=== PATIENT | male | born 1955 | race African-American/Black ===

== ENCOUNTER 2023-09-07 22:50 | Emergency (ER) | payer MEDICARE, MEDICAID ==
[~2023-09-07] VITALS: Ht 177.8 cm; Wt 109.1 kg
[~2023-09-07 22:50] MED LIST: ASPI-556 PO; HYDR25TA2 PO
[2023-09-08 00:04] LABS: BASOPHILS % (AUTO) 0.6 % (0.0-2.0); EOSINOPHILS % (AUTO) 2.9 % (1.0-6.0); HEMATOCRIT 33.4 % (41-53); HEMOGLOBIN 10.9 g/dL (13.5-17.5); LYMPHOCYTES # (AUTO) 0.5 K/uL (1.0-4.8); MEAN CORPUSCULAR HEMOGLOBIN 27.8 pg (26.0-34.0); MEAN CORPUSCULAR HGB CONC 32.5 G/dL (31.0-37.0); MEAN CORPUSCULAR VOLUME 85 fL (80-100); MONOCYTES # (AUTO) 0.8 K/uL (0.1-1.0); MONOCYTES % (AUTO) 12.7 % (2.0-9.0); NEUTROPHILS # (AUTO) 4.7 K/uL (1.8-7.7); NEUTROPHILS % (AUTO) 75.8 % (40.0-70.0); PLATELET COUNT (AUTO) 191 K/uL (150-450); RED BLOOD CELL COUNT(AUTO) 3.91 MIL/uL (4.50-5.90); WHITE BLOOD COUNT (AUTO) 6.2 K/uL (4.5-11.0)
[2023-09-08 00:12] LABS: CALCIUM, TOTAL 9.5 mg/dL (8.8-10.5); CREATININE 1.66 mg/dL (0.60-1.30); POTASSIUM 3.6 mmol/L (3.5-5.1)
[2023-09-08 00:21] LABS: TROPONIN I-HIGH SENSITIVITY 54 ng/L (<76)
[2023-09-08 00:22] LABS: ALBUMIN 3.6 g/dL (3.4-5.0); BILIRUBIN,TOTAL 0.5 mg/dL (0.1-1.0); TOTAL PROTEIN, SERUM 7.2 g/dL (6.4-8.2)
[2023-09-08 00:32] VITALS: TEMP 98.8
[2023-09-08] MEDS ORDERED: ONDANSETRON HCL 4 MG/2 ML VIAL IVP PRN (01:15)
[2023-09-08] MEDS ORDERED: 0.9% SODIUM CHLORIDE 10 ML SYRINGE IVP PRN (01:15)
[2023-09-08] MEDS: ACETAMINOPHEN 325 MG TABLET PO PRN (01:34)
[2023-09-08] MEDS: FUROSEMIDE 40 MG/4 ML VIAL IVP ONE (01:34)
[2023-09-08 01:36] LABS: INFLUENZA A-RTPCR,COMBO NEGATIVE (NEGATIVE); INFLUENZA B-RTPCR,COMBO NEGATIVE (NEGATIVE); RESPIRATORY SYNCYTIAL VRS-PCR NEGATIVE (NEGATIVE); SARS COVID19 RTPCR, COMBO NEGATIVE (NEGATIVE)
[2023-09-08 02:49] LABS: APPEARANCE,URINE CLEAR (CLEAR); BILIRUBIN,URINE NEGATIVE (NEGATIVE); COLOR,URINE LIGHT YELLOW (YELLOW); GLUCOSE, URINE (UA) 300-500 mg/dL (NEGATIVE); KETONES,URINE NEGATIVE (NEGATIVE); LEUKOCYTE ESTERASE ,URINE NEGATIVE (NEGATIVE); NITRATE,URINE NEGATIVE (NEGATIVE); OCCULT BLOOD,URINE NEGATIVE (NEGATIVE); PROTEIN,URINE 30-70 mg/dL (NEGATIVE); SPECIFIC GRAVITIY, URINE 1.014 (1.003-1.030); UROBILINOGEN,URINE <=1.0 mg/dL (<=1.0)
[2023-09-08 02:55] LABS: ALCOHOL, URINE DRUG SCREEN NEGATIVE (NEGATIVE); AMPHET/METH SCREEN,URINE NEGATIVE (NEGATIVE); BARBITURATE SCREEN, URINE NEGATIVE (NEGATIVE); BENZODIAZEPINES SCREEN,URINE NEGATIVE (NEGATIVE); CANNABINOID SCREEN,URINE NEGATIVE (NEGATIVE); COCAINE SCREEN,URINE NEGATIVE (NEGATIVE); METHADONE SCREEN, URINE NEGATIVE (NEGATIVE); OPIATE SCREEN,URINE NEGATIVE (NEGATIVE); PHENCYCLIDINE SCREEN,URINE NEGATIVE (NEGATIVE)
[2023-09-08 02:57] LABS: RBC,URINE None Seen /HPF (0-2); WBC,URINE None Seen /HPF (0-5)
[2023-09-08 02:58] LABS: BACTERIA,URINE None Seen /HPF (None Seen); SQUAMOUS EPITHELIAL CELL,UR None Seen /LPF (None Seen)
[2023-09-08 04:51] VITALS: BP 144/80; PULSE 72; RESP 16
== END 2023-09-08 05:12 | disposition short-term general hospital (02) ==
LOC: EMS 22:50 → 5S 09-08 01:21 → UNDOADMIN 09-08 01:21 → EMS 09-08 05:12
DX: I11.0 Hypertensive heart disease with heart failure (principal); I50.9 Heart failure, unspecified; R06.02 Shortness of breath; Z20.822 Contact with and (suspected) exposure to COVID-19
CPT/HCPCS: 99291; 0241U; 71045; 80053; 81001; 82550; 83880; 84484; 85025; 36415; 93005; 80307; 96374; J1940; J2405

== ENCOUNTER 2023-11-20 22:58 | Inpatient (IN) | payer MEDICARE, MEDICAID ==
[~2023-11-20] VITALS: Ht 177.8 cm; Wt 88.1 kg
[2023-11-21] MEDS ORDERED: LORazepam 2 MG TABLET PO PRN (03:15)
[2023-11-21] MEDS ORDERED: HALOPERIDOL 5 MG TABLET PO PRN (03:15)
[2023-11-21 03:34] LABS: COVID AG,FIA SOURCE NASAL SWAB
[2023-11-21] MEDS ORDERED: FENT12PAT TP (03:46)
[2023-11-21 03:48] LABS: SARS-COV2 (COVID) ANTIGEN,FIA Negative (Negative)
[2023-11-21 07:53] LABS: BASOPHILS % (AUTO) 1.3 % (0.0-2.0); EOSINOPHILS % (AUTO) 4.2 % (1.0-6.0); HEMATOCRIT 33.5 % (41-53); LYMPHOCYTES # (AUTO) 0.6 K/uL (1.0-4.8); MEAN CORPUSCULAR HEMOGLOBIN 28.2 pg (26.0-34.0); MEAN CORPUSCULAR HGB CONC 32.7 G/dL (31.0-37.0); MEAN CORPUSCULAR VOLUME 86 fL (80-100); MONOCYTES # (AUTO) 0.5 K/uL (0.1-1.0); MONOCYTES % (AUTO) 14.3 % (2.0-9.0); NEUTROPHILS # (AUTO) 2.4 K/uL (1.8-7.7); NEUTROPHILS % (AUTO) 63.2 % (40.0-70.0); PLATELET COUNT (AUTO) 116 K/uL (150-450); RED BLOOD CELL COUNT(AUTO) 3.89 MIL/uL (4.50-5.90); RED CELL DISTRIBUTION WIDTH 16.1 % (11.5-14.5); WHITE BLOOD COUNT (AUTO) 3.8 K/uL (4.5-11.0)
[2023-11-21 08:01] LABS: ANION GAP 9 mmol/L (8-16); CALCIUM, TOTAL 8.8 mg/dL (8.8-10.5); CARBON DIOXIDE 31 mmol/L (22-29); CHLORIDE 99 mmol/L (98-107); CREATININE 1.49 mg/dL (0.60-1.30); GLOMERULAR FILTR. RATE CALC 57 mL/min (>60); GLUCOSE,RANDOM 86 mg/dL (70-110); POTASSIUM 3.2 mmol/L (3.5-5.1); SODIUM SERUM 139 mmol/L (136-145); UREA NITROGEN, BLOOD 38 mg/dL (7-18)
[2023-11-21 08:07] LABS: ALANINE AMINOTRANSFERASE 28 U/L (12-78); ALBUMIN 3.4 g/dL (3.4-5.0); ALKALINE PHOSPHATASE 143 U/L (46-116); ASPARTATE AMINOTRANSFERASE 30 U/L (15-37); BILIRUBIN,TOTAL 0.7 mg/dL (0.1-1.0); TOTAL PROTEIN, SERUM 7.2 g/dL (6.4-8.2)
[2023-11-21 08:10] LABS: ALCOHOL, BLOOD (SERUM) < 3 mg/dL (0-10)
[2023-11-21 08:11] LABS: TROPONIN I-HIGH SENSITIVITY 32 ng/L (<76)
[2023-11-21] MEDS: APIXABAN 5 MG TABLET PO ONE (08:12)
[2023-11-21] MEDS: FUROSEMIDE 20 MG TABLET PO ONE (08:13)
[2023-11-21] MEDS: AmLODIPine BESYLATE 5 MG TABLET PO ONE (08:13)
[2023-11-21] MEDS: SERTRALINE HCL 50 MG TABLET PO ONE (08:14)
[2023-11-21 16:33] LABS: PH,URINE DRUG SCREEN 7.5 (5.0-8.0)
[2023-11-21 16:40] LABS: ALCOHOL, URINE DRUG SCREEN NEGATIVE (NEGATIVE); AMPHET/METH SCREEN,URINE NEGATIVE (NEGATIVE); BARBITURATE SCREEN, URINE NEGATIVE (NEGATIVE); BENZODIAZEPINES SCREEN,URINE NEGATIVE (NEGATIVE); CANNABINOID SCREEN,URINE NEGATIVE (NEGATIVE); COCAINE SCREEN,URINE NEGATIVE (NEGATIVE); METHADONE SCREEN, URINE NEGATIVE (NEGATIVE); OPIATE SCREEN,URINE NEGATIVE (NEGATIVE); PHENCYCLIDINE SCREEN,URINE NEGATIVE (NEGATIVE)
[2023-11-22] MEDS: POTASSIUM CHLORIDE 20 MEQ ER TABLET PO ONE ×2 (00:07→13:49)
[2023-11-22 03:49] VITALS: BP 141/84; PULSE 70; RESP 18; TEMP 97.1; O2SAT 97
[2023-11-22 06:31] LABS: GLUCOMETER DEV NAME(LOC) 3EX.2; GLUCOSE,POINT OF CARE 94 MG/DL (70-110)
[2023-11-22] MEDS ORDERED: BACLOFEN 10 MG TABLET PO PRN (08:15)
[2023-11-22] MEDS: EMPAGLIFLOZIN 10 MG TABLET PO SCH (09:20)
[2023-11-22] MEDS: CARVEDILOL 6.25 MG TABLET PO SCH (09:21)
[2023-11-22] MEDS: FUROSEMIDE 80 MG TABLET PO SCH (09:21)
[2023-11-22] MEDS: APIXABAN 5 MG TABLET PO SCH (09:21)
[2023-11-22] MEDS: AmLODIPine BESYLATE 5 MG TABLET PO SCH (09:23)
[2023-11-22 09:30] VITALS: BP 160/77; PULSE 56; RESP 17; TEMP 98; O2SAT 97
[2023-11-22] MEDS: FentaNYL 12 MCG/HOUR PATCH TD SCH (09:35)
[2023-11-22 09:36] VITALS: BP 160/77; PULSE 56; RESP 18; TEMP 98; O2SAT 95
[2023-11-22] MEDS ORDERED: ALBUTEROL SULFATE HFA 90 MCG/PUFF 8 GM INHALER IH PRN (11:45)
[2023-11-22] MEDS ORDERED: OMEPRAZOLE 20 MG CAPSULE PO PRN (11:45)
[2023-11-22] MEDS ORDERED: ONDANSETRON HCL 4 MG TABLET PO PRN (11:45)
[2023-11-22] MEDS ORDERED: DOCUSATE SODIUM 100 MG CAPSULE PO PRN (11:45)
[2023-11-22] MEDS ORDERED: PETROLATUM,WHITE 28 GM JELLY TP PRN (11:45)
[2023-11-22] MEDS ORDERED: MAGNESIUM HYDROXIDE SUSPENSION 30 ML UDCUP PO PRN (11:45)
[2023-11-22] MEDS ORDERED: MAG HYDROX/ALUMINUM HYD/SIMETH ES 30 ML SUSPENSION UDCUP PO PRN (11:45)
[2023-11-22] MEDS ORDERED: CloNIDine HCL 0.1 MG TABLET PO PRN (11:45)
[2023-11-22] MEDS ORDERED: BACITRACIN 28 GM OINTMENT TP PRN (11:45)
[2023-11-22] MEDS ORDERED: BENZOCAINE/MENTHOL LOZENGE PO PRN (11:45)
[2023-11-22] MEDS ORDERED: LOPERAMIDE HCL 2 MG CAPSULE PO PRN (11:45)
[2023-11-22] MEDS: TAMSULOSIN HCL 0.4 MG CAPSULE PO SCH (21:02)
[2023-11-22] MEDS: MELATONIN 3 MG TABLET PO SCH (21:02)
[2023-11-22] MEDS: ATORVASTATIN CALCIUM 40 MG TABLET PO SCH (21:02)
[2023-11-22 21:39] VITALS: BP 115/55; PULSE 50; RESP 18; TEMP 98.1; O2SAT 98
[2023-11-22] MEDS: OxyCODONE HCL 5 MG IR TABLET PO PRN (21:58)
[2023-11-22 22:58] VITALS: RESP 18
[2023-11-23] MEDS: OLANZapine 5 MG TABLET PO SCH (09:14)
[2023-11-23 10:56] VITALS: BP 109/51; PULSE 50; RESP 17; TEMP 97.9; O2SAT 96
[2023-11-23 11:21] VITALS: BP 141/71; PULSE 54; RESP 20; TEMP 98; O2SAT 96
[2023-11-23 23:40] VITALS: BP 122/56; PULSE 60; RESP 18; TEMP 98; O2SAT 96
[2023-11-24 10:00] VITALS: BP 106/50; PULSE 52; RESP 18; TEMP 97.4; O2SAT 94
[2023-11-24 11:00] VITALS: BP 130/57; PULSE 57
[2023-11-24 16:07] VITALS: BP 143/67; PULSE 57; RESP 20; TEMP 98; O2SAT 96
[2023-11-24] MEDS: CARVEDILOL 3.125 MG TABLET PO SCH (16:10)
[2023-11-24 20:53] VITALS: BP 128/70; PULSE 62; RESP 18; TEMP 98; O2SAT 98
[2023-11-24] MEDS: DIVALPROEX SODIUM 500 MG ER TABLET PO SCH (21:36)
[2023-11-24] MEDS: GABAPENTIN 300 MG CAPSULE PO SCH (21:37)
[2023-11-25] MEDS: DULoxetine HCL 20 MG CAPSULE PO SCH (08:34)
[2023-11-25 12:19] VITALS: BP 131/56; PULSE 60; RESP 18; TEMP 97.6; O2SAT 95
[2023-11-25 12:20] VITALS: RESP 19
[2023-11-25 18:00] VITALS: BP 141/70; PULSE 55
[2023-11-25 20:53] VITALS: BP 98/44; PULSE 55; RESP 18; TEMP 97.6; O2SAT 94
[2023-11-26] MEDS: DULoxetine HCL 30 MG CAPSULE PO SCH (09:36)
[2023-11-26 10:11] VITALS: BP 132/60; PULSE 63; RESP 19; TEMP 97.6; O2SAT 97
[2023-11-26 16:30] VITALS: BP 134/73; PULSE 68; RESP 18
[2023-11-26 22:16] VITALS: BP 113/55; PULSE 60; RESP 18; TEMP 97.5; O2SAT 97
[2023-11-27 09:14] VITALS: BP 155/76; PULSE 73; RESP 18; TEMP 97.1; O2SAT 97
[2023-11-27] MEDS: OLANZapine 5 MG TABLET PO SCH (09:17)
[2023-11-27] MEDS: DULoxetine HCL 20 MG CAPSULE PO SCH (09:18)
[2023-11-27] MEDS: GABAPENTIN 300 MG CAPSULE PO PRN (14:17)
[2023-11-27 17:00] VITALS: BP 123/50; PULSE 56
[2023-11-27] MEDS: GABAPENTIN 400 MG CAPSULE PO SCH (17:15)
[2023-11-27 21:10] VITALS: BP 133/63; PULSE 62; RESP 18; TEMP 98.1; O2SAT 96
[2023-11-27 21:12] VITALS: BP 133/63; PULSE 62; RESP 18; TEMP 98.1; O2SAT 96
[2023-11-28] VITALS (15 sets, daily range): BP systolic 121–154; BP diastolic 60–76; PULSE 61–71; RESP 17–19; TEMP 97–98; O2SAT 0–99
[2023-11-28] MEDS: DULoxetine HCL 60 MG CAPSULE PO SCH (09:07)
[2023-11-28 17:16] LABS: GLUCOMETER DEV NAME(LOC) 3EX.2; GLUCOSE,POINT OF CARE 157 MG/DL (70-110)
[2023-11-29 10:57] VITALS: BP 107/56; PULSE 60; RESP 19; TEMP 97; O2SAT 0
[2023-11-29 17:11] VITALS: BP 102/58; PULSE 62; RESP 18; TEMP 97.4
[2023-11-29 18:11] VITALS: RESP 18
[2023-11-29 21:27] VITALS: BP 121/58; PULSE 70; RESP 18; TEMP 96.3; O2SAT 95
[2023-11-30 17:19] VITALS: BP 126/67; PULSE 57; RESP 16; TEMP 98; O2SAT 95
[2023-11-30] MEDS: GABAPENTIN 300 MG CAPSULE PO SCH (17:41)
[2023-11-30 18:10] VITALS: BP 128/58; PULSE 73
[2023-11-30 20:21] VITALS: BP 121/63; PULSE 71; RESP 18; TEMP 97.5
[2023-11-30] MEDS: OLANZapine 7.5 MG TABLET PO SCH (20:42)
[2023-12-01 08:27] LABS: ALBUMIN 2.8 g/dL (3.4-5.0); BILIRUBIN,TOTAL 0.5 mg/dL (0.1-1.0); CALCIUM, TOTAL 8.4 mg/dL (8.8-10.5); CREATININE 1.72 mg/dL (0.60-1.30); MAGNESIUM 2.8 mg/dL (1.80-2.40); PHOSPHORUS 4.6 mg/dL (2.5-4.9); POTASSIUM 3.6 mmol/L (3.5-5.1)
[2023-12-01 08:32] LABS: BASOPHILS % (AUTO) 0.3 % (0.0-2.0); HEMOGLOBIN 10.7 g/dL (13.5-17.5); LYMPHOCYTES # (AUTO) 0.4 K/uL (1.0-4.8); LYMPHOCYTES % (AUTO) 7.4 % (22.0-44.0); MEAN CORPUSCULAR HEMOGLOBIN 28.1 pg (26.0-34.0); MEAN CORPUSCULAR HGB CONC 32.5 G/dL (31.0-37.0); MEAN CORPUSCULAR VOLUME 87 fL (80-100); MONOCYTES # (AUTO) 0.9 K/uL (0.1-1.0); MONOCYTES % (AUTO) 17.2 % (2.0-9.0); NEUTROPHILS # (AUTO) 3.9 K/uL (1.8-7.7); NEUTROPHILS % (AUTO) 73.1 % (40.0-70.0); PLATELET COUNT (AUTO) 107 K/uL (150-450); RED BLOOD CELL COUNT(AUTO) 3.81 MIL/uL (4.50-5.90); RED CELL DISTRIBUTION WIDTH 16.4 % (11.5-14.5); WHITE BLOOD COUNT (AUTO) 5.3 K/uL (4.5-11.0)
[2023-12-01 09:40] VITALS: BP 132/66; PULSE 75; RESP 18; TEMP 98.2
[2023-12-01 20:22] VITALS: BP 134/78; PULSE 77; RESP 18; TEMP 97.6; O2SAT 98
[2023-12-02 12:21] VITALS: BP 139/68; PULSE 58; RESP 18; TEMP 97.4; O2SAT 98
[2023-12-02] MEDS: ACETAMINOPHEN 325 MG TABLET PO PRN (12:40)
[2023-12-02 20:30] VITALS: BP 106/54; PULSE 62; RESP 18; TEMP 98; O2SAT 94
[2023-12-03 08:27] VITALS: BP 143/73; PULSE 55; RESP 18; TEMP 97.5; O2SAT 95
[2023-12-03] MEDS: DULoxetine HCL 30 MG CAPSULE PO SCH (10:15)
[2023-12-03 21:01] VITALS: RESP 18
[2023-12-03] MEDS: ZOLPIDEM TARTRATE 10 MG TABLET PO PRN (22:02)
[2023-12-04] MEDS: GABAPENTIN 400 MG CAPSULE PO SCH (09:07)
[2023-12-04 10:19] VITALS: BP 120/59; PULSE 64; RESP 18; TEMP 98.3; O2SAT 97
[2023-12-04] MEDS ORDERED: DIVA500T69 PO (14:12)
[2023-12-04] MEDS ORDERED: GABA-1201 PO (14:12)
[2023-12-04] MEDS ORDERED: OLAN7.5T22 PO (15:02)
[2023-12-04] MEDS ORDERED: MELA3TAB89 PO (15:02)
[2023-12-04] MEDS ORDERED: DULO-114 PO (15:02)
== END 2023-12-04 15:55 | disposition hospice, inpatient (51) | DRG 885 ==
LOC: EMS 22:58 → UNDOADMIN 11-21 22:41 → 3EX 11-21 22:41
PROVIDERS: ADMIT Psychiatry & Neurology Psychiatry; ATTEND Psychiatry & Neurology Psychiatry
PROC: GZHZZZZ Group Psychotherapy (ICD-10-PCS; principal; 2023-11-22)
PROC: GZ51ZZZ Individual Psychotherapy, Behavioral (ICD-10-PCS; 2023-11-22)
PROC: GZ56ZZZ Individual Psychotherapy, Supportive (ICD-10-PCS; 2023-11-22)
DX: F25.0 Schizoaffective disorder, bipolar type (principal); F33.2 Major depressive disorder, recurrent severe without psychotic features; I25.10 Atherosclerotic heart disease of native coronary artery without angina pectoris; C61 Malignant neoplasm of prostate; G89.29 Other chronic pain; I10 Essential (primary) hypertension; E87.6 Hypokalemia; Z20.822 Contact with and (suspected) exposure to COVID-19; F41.9 Anxiety disorder, unspecified; R26.9 Unspecified abnormalities of gait and mobility; G47.00 Insomnia, unspecified; K59.00 Constipation, unspecified; I48.91 Unspecified atrial fibrillation; Z79.01 Long term (current) use of anticoagulants; Z81.8 Family history of other mental and behavioral disorders; Z85.07 Personal history of malignant neoplasm of pancreas; Z88.8 Allergy status to other drugs, medicaments and biological substances
CPT/HCPCS: 70450; 72125; 80053; 80164; 80307; 82962; 83735; 84100; 84132; 84153; 84484; 85025; 87081; 87481; 93005; 99285; G0378; G0480; Q9967